=== PATIENT | female | born 1990 | race African-American/Black ===

== ENCOUNTER 2019-03-20 19:24 | Observation (INO) | payer OTHER ==
[~2019-03-20] VITALS: Ht 157.5 cm; Wt 65.3 kg
[2019-03-20] MEDS ORDERED: PNV1TABL50 PO (20:42)
[2019-03-20] MEDS ORDERED: ASPI-1393 PO (20:42)
== END 2019-03-20 21:00 | disposition home or self-care (01) ==
LOC: 8 EST LDRP 19:24
PROVIDERS: ADMIT Obstetrics & Gynecology; ATTEND Obstetrics & Gynecology
DX: O13.3 Gestational [pregnancy-induced] hypertension without significant proteinuria, third trimester (principal); Z3A.31 31 weeks gestation of pregnancy
CPT/HCPCS: 99281; G0378